=== PATIENT | male | born 1990 | race Caucasian/White ===

== ENCOUNTER 2022-11-23 11:16 | Emergency (ER) | payer SELFPAY ==
[~2022-11-23] VITALS: Ht 170.2 cm; Wt 113.4 kg
[2022-11-23 11:33] VITALS: BP 144/103; PULSE 99; RESP 18; TEMP 97.8; O2SAT 100
[2022-11-23] MEDS ORDERED: ERYT5OIN51 OP (13:31)
[2022-11-23 13:41] VITALS: BP 144/103; PULSE 99; RESP 18; TEMP 97.8; O2SAT 100
== END 2022-11-23 13:40 | disposition home or self-care (01) ==
LOC: MED 11:16
DX: H00.015 Hordeolum externum left lower eyelid (principal); Z79.2 Long term (current) use of antibiotics
CPT/HCPCS: 99283

== ENCOUNTER 2023-06-05 10:07 | Emergency (ER) | payer SELFPAY ==
[~2023-06-05] VITALS: Ht 170.2 cm; Wt 104.3 kg
[~2023-06-05 10:07] MED LIST: ERYT5OIN51 OP
[2023-06-05 10:23] VITALS: BP 146/107; PULSE 93; RESP 18; TEMP 97.3; O2SAT 97
[2023-06-05] MEDS: AMOXIL/CLAVULANATE 875/125 MG 1 TAB PO ONE (10:54)
[2023-06-05] MEDS ORDERED: BACI-105 TP (11:01)
[2023-06-05] MEDS ORDERED: AMOX1TAB8 PO (11:01)
[2023-06-05] MEDS: BACITRACIN OINT 500 UNITS/GM PKT TP ONE (11:13)
[2023-06-05 11:35] VITALS: BP 146/107; PULSE 93; RESP 18; TEMP 97.3; O2SAT 97
== END 2023-06-05 11:35 | disposition home or self-care (01) ==
LOC: MED 10:07
DX: S61.411A Laceration without foreign body of right hand, initial encounter (principal); L03.113 Cellulitis of right upper limb; Z79.899 Other long term (current) drug therapy; X58.XXXA Exposure to other specified factors, initial encounter; Y93.89 Activity, other specified; Y92.89 Other specified places as the place of occurrence of the external cause; Y99.8 Other external cause status
CPT/HCPCS: 73130; 99283